=== PATIENT | female | born 1970 | race Caucasian/White ===

== ENCOUNTER 2022-03-04 09:32 | Outpatient (CLI) | payer OTHER ==
[~2022-03-04 09:32] MED LIST: Iopamidol 370 76% 100 ML VIAL ONE
== END 2022-03-04 09:33 | disposition home or self-care (01) ==
LOC: BICCT 09:32
PROVIDERS: ATTEND Nurse Practitioner Family
DX: Z12.31 Encounter for screening mammogram for malignant neoplasm of breast (principal); R91.8 Other nonspecific abnormal finding of lung field; K76.9 Liver disease, unspecified; J84.10 Pulmonary fibrosis, unspecified; N28.1 Cyst of kidney, acquired; K86.2 Cyst of pancreas
CPT/HCPCS: 71260; 74170; 77063; 77067; Q9967